=== PATIENT | male | born 1995 | race Caucasian/White ===

== ENCOUNTER 2016-12-05 00:15 | Emergency (ER) | payer OTHER ==
[~2016-12-05] VITALS: Ht 185.4 cm; Wt 79.4 kg
[2016-12-05 00:15] VITALS: BP 153/95
[~2016-12-05 00:15] MED LIST: HYDR-971 PO
[2016-12-05] MEDS ORDERED: oxyCODONE/APAP 10/325 1 TAB TABLET PO ONE (01:00)
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
== END 2016-12-05 01:17 | disposition home or self-care (01) ==
LOC: ER 00:15
DX: S90.32XA Contusion of left foot, initial encounter (principal); W20.8XXA Other cause of strike by thrown, projected or falling object, initial encounter; Y93.89 Activity, other specified; Y99.8 Other external cause status; Y92.89 Other specified places as the place of occurrence of the external cause
CPT/HCPCS: 73630; 99284

== ENCOUNTER 2017-12-16 13:11 | Emergency (ER) | payer OTHER ==
[~2017-12-16] VITALS: Ht 185.4 cm; Wt 87.2 kg
--- NOTE | 2017-12-16 14:34 | PHYS DOC ---
Past History Past Medical History: No Pertinent History Past Surgical History: No Surgical History Alcohol Use: Occasionally Drug Use: None Adult General Chief Complaint Chief Complaint: RING REMOVAL HPI HPI Patient is a 22 year old male who presents with complaint of a ring stuck on the right ring finger. Patient states that he placed this ring on his finger shortly prior to arrival. Patient states that the ring went on without difficulty, however he states that it became tight and he is currently unable to remove it. Patient states he tried using string and wrapping his finger with no success. Patient has come to the emergency department to have his ring removed. Patient states that he is having tingling in his finger and is having pain but denies any other symptoms. Review of Systems Review of Systems Constitutional: Denies fever or chills [] Eyes: Denies change in visual acuity, redness, or eye pain [] HENT: Denies nasal congestion or sore throat [] Respiratory: Denies cough or shortness of breath [] Cardiovascular: Denies chest pain or edema[] GI: Denies abdominal pain, nausea, vomiting, bloody stools or diarrhea [] : Denies dysuria or hematuria [] Musculoskeletal: Right ring finger pain[] Integument: Denies rash or skin lesions [] Neurologic: Denies headache, focal weakness or sensory changes [] All other systems were reviewed and found to be within normal limits, except as documented in this note. Allergies Allergies Allergies Coded Allergies Type Severity Reaction Last Updated Verified No Known Drug Allergies 12/05/16 No Physical Exam Physical Exam Constitutional: Alert, afebrile, appears in mild discomfort. [] HENT: Normocephalic, atraumatic, bilateral external ears normal, oropharynx moist, no oral exudates, nose normal. [] Eyes: PERRLA, EOMI, conjunctiva normal, no discharge. [] Neck: Normal range of motion, no tenderness, supple, no stridor. [] Cardiovascular:Heart rate regular rhythm, no murmur [] Lungs & Thorax: Bilateral breath sounds clear to auscultation [] Abdomen: Bowel sounds normal, soft, no tenderness, no masses, no pulsatile masses. [] Skin: Warm, dry, no erythema, no rash. [] Back: No tenderness, no CVA tenderness. [] Extremities: Right ring finger with capillary refill less than 2 seconds, stainless steel ring causing [id number] constriction at base of right ring finger, no clubbing, ROM intact, no edema. [] Neurologic: Alert and oriented X 3, normal motor function, normal sensory function, no focal deficits noted. [] Current Patient Data Vital Signs Vital Signs Date Time Temp Pulse Resp B/P (MAP) Pulse Ox O2 Delivery O2 Flow Rate FiO2 12/16/17 13:27 98.2 76 16 99 Room Air Lab Results None performed EKG EKG Not performed[] Radiology/Procedures Radiology/Procedures Indication: Ring stuck on right ring finger Procedure: The patients hand was positioned appropriately and the ring was removed using a ring cutter using bivalve technique followed by a gas systems worker. The patient tolerated the procedure with some pain. Complications: Slight maceration and bruising to finger occurred during the process.[] Course & Med Decision Making Course & Med Decision Making Pertinent Labs and Imaging studies reviewed. (See chart for details) Patient's ring was removed as outlined in the procedure note. Advised use of ibuprofen and patient was prescribed a small course of hydrocodone to help with pain associated with the ring removal procedure. Advised follow-up with primary doctor in 3 days for reevaluation and return to emergency department for any worsening symptoms. Patient was understanding and agreement with treatment plan. Dragon Disclaimer Dragon Disclaimer This electronic medical record was generated, in whole or in part, using a voice recognition dictation system. Departure Departure: Impression: Primary Impression: External constriction of right ring finger, initial encounter Disposition: HOME, SELF-CARE Condition: IMPROVED Referrals: GARY DAVENPORT DO, M[facility] (PCP) Patient Instructions: Crush Injury, Fingers or Toes Additional Instructions: Follow-up with her primary doctor in 3 days for reevaluation. Return to the emergency department for any worsening symptoms. Scripts Hydrocodone Bit/Acetaminophen (NORCO 5-325 TABLET) 1 Each Tablet 1-2 TAB PO Q4-6HRS PRN for PAIN, #15 TAB Prov: VIOLA MENARD MD 12/16/17 VIOLA MENARD MD Dec 16, 2017 14:34
[2017-12-16] MEDS ORDERED: HYDR-971 PO (18:32)
[2017-12-16 18:37] VITALS: BP 126/80
== END 2017-12-16 18:37 | disposition home or self-care (01) ==
LOC: ER 13:11
DX: S60.444A External constriction of right ring finger, initial encounter (principal); W49.04XA Ring or other jewelry causing external constriction, initial encounter; Y93.89 Activity, other specified; Y92.89 Other specified places as the place of occurrence of the external cause; Y99.8 Other external cause status
CPT/HCPCS: 99284